=== PATIENT | male | born 1990 | race African-American/Black ===

== ENCOUNTER 2018-02-16 00:30 | Emergency (ER) | payer MEDICAID, SELFPAY | END 2018-02-16 00:45 | LOC: ERS 00:30 | DX: Z02.89 Encounter for other administrative examinations (principal) | CPT/HCPCS: 99283 ==

== ENCOUNTER 2019-08-23 08:18 | Emergency (ER) | payer SELFPAY | END 2019-08-23 10:50 | disposition home or self-care (01) | LOC: ERS 08:18 | DX: J45.901 Unspecified asthma with (acute) exacerbation (principal); J06.9 Acute upper respiratory infection, unspecified | CPT/HCPCS: 94760; J7620 ==